=== PATIENT | male | born 1975 | race American Indian/Alaskan Native ===

== ENCOUNTER 2017-07-23 13:09 | Emergency (ER) | payer BC ==
[2017-07-23 15:08] VITALS: BP 133/85
--- NOTE | 2017-07-23 17:18 | Emergency Department Report ---
ED Back Pain/Injury HPI - General Chief Complaint: Back Pain/Injury Stated Complaint: BACK PAIN Time Seen by Provider: 07/23/17 16:57 Source: patient Mode of arrival: Ambulatory Limitations: No Limitations - History of Present Illness Initial Comments: PT c/o back pain. PT states the pain started a week ago after lifting a 40-50 lb basket at work. PT states he felt the pain 45 mins after lifting. PT states he reported the accident at work and was given Saqib Freeze to apply topically and Motrin. PT states he has been on light duty at work. PT states the pain has not improved. PT has taken an OTC Magnesium Muscle relief pill and he states his grandmother has been giving him hydrocodone. Complaint: back injury Onset/Timin -: Sudden, week(s) Similar Symptoms Previously: No Place: work Radiation: none Severity: severe Severity scale (0 -10): 10 Quality: sharp Consistency: constant Improves With: none Worsens With: movement Context: while lifting Associated Symptoms: denies: chest pain, difficulty walking, difficulty urinating, incontinence, fever/chills, nausea/vomiting Treatments Prior to Arrival: NSAIDS, prescription analgesics (his grandmother's RX ) - Related Data Previous Rx's Medication Instructions Recorded Last Taken Type methOCARBAMOL [Robaxin TAB] 500 mg PO Q6H PRN #15 tablet 07/23/17 Unknown Rx methylPREDNISolone [Medrol] 4 mg PO DAILY #1 tab.ds.pk 07/23/17 Unknown Rx traMADol [Ultram] 50 mg PO Q6HR PRN #12 tablet 07/23/17 Unknown Rx Allergies Allergy/AdvReac Type Severity Reaction Status Date / Time No Known Allergies Allergy Unverified 07/23/17 15:05 ED Review of Systems ROS: Stated complaint: BACK PAIN Other details as noted in HPI Comment: All other systems reviewed and negative Constitutional: denies: chills, fever Gastrointestinal: denies: abdominal pain, nausea, vomiting Genitourinary: denies: dysuria Musculoskeletal: back pain Neurological: denies: numbness, paresthesias ED Past Medical Hx - Past Medical History Previous Medical History?: Yes Hx Hypertension: No Hx Diabetes: No Additional medical history: Back pain - Surgical History Past Surgical History?: No - Social History Smoking Status: Current Every Day Smoker Substance Use Type: Alcohol, Non Opiate Pain, Other - Medications Home Medications: Home Medications Medication Instructions Recorded Confirmed Last Taken Type methOCARBAMOL [Robaxin TAB] 500 mg PO Q6H PRN #15 tablet 07/23/17 Unknown Rx methylPREDNISolone [Medrol] 4 mg PO DAILY #1 tab.ds.pk 07/23/17 Unknown Rx traMADol [Ultram] 50 mg PO Q6HR PRN #12 tablet 07/23/17 Unknown Rx ED Physical Exam - General Limitations: No Limitations General appearance: alert, in no apparent distress - Head Head exam: Present: atraumatic, normocephalic, normal inspection - Eye Eye exam: Present: normal appearance. Absent: conjunctival injection - ENT ENT exam: Present: normal exam, normal external ear exam - Neck Neck exam: Present: normal inspection, full ROM. Absent: tenderness, lymphadenopathy - Respiratory Respiratory exam: Present: normal lung sounds bilaterally. Absent: respiratory distress, wheezes - Cardiovascular Cardiovascular Exam: Present: regular rate, normal rhythm, normal heart sounds - GI/Abdominal GI/Abdominal exam: Present: soft. Absent: tenderness - Rectal Rectal exam: Present: deferred - Extremities Exam Extremities exam: Present: normal inspection, full ROM - Back Exam Back exam: Present: normal inspection, full ROM, tenderness, paraspinal tenderness (R lumbar ), vertebral tenderness (lumbar ). Absent: CVA tenderness (R), CVA tenderness (L) - Expanded Back Exam Expanded Back exam: Absent: saddle anesthesia - Neurological Exam Neurological exam: Present: alert, oriented X3, normal gait - Psychiatric Psychiatric exam: Present: normal affect, normal mood - Skin Skin exam: Present: warm, dry, intact ED Course Vital Signs 07/23/17 15:05 Temperature 98.6 F Pulse Rate 80 Respiratory 18 Rate Blood Pressure 133/85 O2 Sat by Pulse 99 Oximetry - Reevaluation(s) Reevaluation #1: 07/23/17 17:21 PT advised to stop taking prescription medications that have not been prescribed to him. PT verbalizes understanding. Pt aware of plan of care. Reevaluation #2: 07/23/17 18:57 PT states pain decreased sp Solumedrol. PT aware of XR results. PT aware he will need to follow up with PCP/ ORTHO and he may need further imaging of his spine to evaluate the disc space between L5-S1 - Pulse Oximetry Interpretation Digit-Finger Initial Pulse Oximetry Readin Actions Taken: none ED Medical Decision Making - Radiology Data Radiology results: report reviewed XR L-Spine - no fx, mild degenerative disc changes L5- S1 - Differential Diagnosis strain, compression fx, ddd Critical Care Time: No Critical care attestation.: If time is entered above; I have spent that time in minutes in the direct care of this critically ill patient, excluding procedure time. ED Disposition Clinical Impression: Acute low back pain Qualifiers: Back pain laterality: right Sciatica presence: without sciatica Qualified Code( s): M54.5 - Low back pain Disposition: TO HOME OR SELFCARE Is pt being admited?: No Does the pt Need Aspirin: No Condition: Stable Instructions: Low Back Strain (ED), Acute Low Back Pain (ED) Additional Instructions: No driving or alcohol after taking Robaxin or Ultram do not take medication that is not prescribed to you Follow up with PCP in 3-5 days Prescriptions: methOCARBAMOL [Robaxin TAB] 500 mg PO Q6H PRN #15 tablet PRN Reason: Muscle Spasm methylPREDNISolone [Medrol] 4 mg PO DAILY #1 tab.ds.pk traMADol [Ultram] 50 mg PO Q6HR PRN #12 tablet PRN Reason: Pain Referrals: PRIMARY CARE, [Primary Care Provider] - 3-5 Days XIMENA PATEL MD [Staff Physician] - 3-5 Days FRANNIE MARIA MD [Staff Physician] - 3-5 Days Forms: Work/School Release Form(ED) Time of Disposition: 19:00
--- NOTE | 2017-07-23 18:47 | XRay Report ---
FINAL REPORT EXAM: XR SPINE LUMBOSACRAL 2-3V HISTORY: pain sp lifting TECHNIQUE: AP, lateral, and coned-down views of the lumbar spine PRIORS: None. FINDINGS: The vertebral body heights are well maintained. There is mild narrowing the L5-S1 disc space. The alignment is normal. No evidence for spondylolysis or spondylolisthesis is seen. Pedicles are intact bilaterally at all levels. The paraspinal soft tissues are unremarkable. IMPRESSION: Mild degenerative disc changes at L5-S1
== END 2017-07-23 19:15 | disposition home or self-care (01) ==
LOC: ED 13:09
DX: M54.5 Low back pain (principal); F17.200 Nicotine dependence, unspecified, uncomplicated
CPT/HCPCS: 72100; 96372; 99283; J2930